=== PATIENT | male | born 1995 | race African-American/Black ===

== ENCOUNTER 2016-06-06 11:04 | Emergency (ER) | payer OTHER ==
[~2016-06-06] VITALS: Ht 170.2 cm; Wt 66.0 kg
[2016-06-06 11:05] VITALS: BP 133/80; PULSE 80; RESP 16; TEMP 98.8; O2SAT 99
[2016-06-06] MEDS ORDERED: IBUP800T23 PO (11:25)
--- NOTE | 2016-06-06 11:26 | PD ---
HPI Chief Complaint: Injury Time Seen by Provider: 11:22 Travel History International Travel<30 days: No Contact w/Intl Traveler<30days: No Traveled to known affect area: No History of Present Illness HPI 20-year-old male presents to emergency Department with complaint of left ankle pain and swelling since last night after stepping up a step and his foot slipped off the step, twisting his ankle. Denies paresthesias, loss of sensation, decreased range of motion, decreased strength to the affected extremity. Has been able to treat on the affected extremity. Denies fever, chills, nausea, vomiting. Pain and swelling is to the lateral aspect. Has iced and elevated the affected extremity. Has not taken any medications to alleviate his symptoms. No known allergies. No other medical complaints. No other modifying factors or associated signs and symptoms. [facility] Social History Tobacco Use: No Allergies-Medications (Allergen,Severity, Reaction): Coded Allergies: No Known Allergies (Unverified , 06/06/16) Reported Meds & Prescriptions Reported Meds & Active Scripts Active Ibuprofen 800 Mg Tab 800 Mg PO Q6HR PRN Review of Systems Except as stated in HPI: all other systems reviewed are Neg Physical Exam Narrative GENERAL: Well-nourished, well-developed male patient, in no acute distress SKIN: Warm and dry. HEAD: Atraumatic. Normocephalic. EYES: Pupils equal and round. No scleral icterus. No injection or drainage. ENT: Mucosa pink and moist. Airway patent. NECK: Trachea midline. CARDIOVASCULAR: Regular rate. RESPIRATORY: No accessory muscle use. GASTROINTESTINAL: Flat. MUSCULOSKELETAL: Left ankle with point tenderness and mild edema to the lateral malleolar zone; no obvious deformity. Left lower extremity is supple and non- tense with 2+ pedal pulses and sensory intact. No obvious deformities. No clubbing. No cyanosis. No edema. NEUROLOGICAL: Awake and alert. Oriented 3. No obvious cranial nerve deficits. Motor grossly within normal limits. Normal speech. PSYCHIATRIC: Appropriate mood and affect; insight and judgment normal. Data Data Last Documented VS Vital Signs Date Time Temp Pulse Resp B/P Pulse Ox O2 Delivery O2 Flow Rate FiO2 06/06/16 11:05 98.8 80 16 133/80 99 Room Air Orders Ankle, Complete ([id number]) (06/06/16 11:17) [facility] Medical Decision Making Medical Screen Exam Complete: Yes Emergency Medical Condition: Yes Medical Record Reviewed: Yes Differential Diagnosis Ankle sprain, ankle fracture, ankle dislocation Narrative Course 20-year-old male with left ankle injury. I offered the patient a nonnarcotic while in the ER and he declined. Left ankle x-ray ordered. 1219: Left ankle x-ray concludes Negative trauma study with mild soft tissue swelling over the lateral malleolus. Kt bandage and ankle stirrup splint provider for support. Crutches provided for support. Ibuprofen prescribed for home. Patient verbalizes understanding and agreement with treatment plan. Patient is medically cleared and stable for discharge. Discussed reasons to return to the emergency department. Instructed patient to follow up with primary care provider. Patient agrees with treatment plan. The patients vital signs are stable and the patient is stable for outpatient follow-up and treatment. Patient discharged home, stable and in no acute distress. Diagnosis Primary Impression: Left ankle sprain Qualified Code: S93.402A - Sprain of left ankle, unspecified ligament, initial encounter Referrals: Primary Care Physician Patient Instructions: Ankle Sprain (ED), Ankle Sprain Exercises (GEN), General Instructions Additional Instructions: Ibuprofen or Tylenol as directed and as stated for pain and inflammation Rest, ice, compress, and elevate extremity to decrease pain and inflammation Ankle Brace for support Avoid aggravating activity; increase activity as tolerated Follow-up with primary care provider Return to the emergency department immediately with worsening symptoms Med/Other Pt SpecificInfo: Prescription(s) given Scripts Ibuprofen 800 Mg [id number] Mg PO Q6HR PRN (PAIN) #30 TAB Ref 0 Prov:Janice Muniz 06/06/16 Disposition: 01 DISCHARGE HOME Condition: Stable Janice Muniz Jun 06, 2016 11:26
--- NOTE | 2016-06-06 11:54 | RADRPT ---
EXAM DATE/TIME: 06/06/2016 11:51 [facility] COMPARISON: No previous studies available for comparison. INDICATIONS : Left ankle pain, fall down stairs. MEDICAL HISTORY : None. SURGICAL HISTORY : None. ENCOUNTER: Initial ACUITY: 2 days PAIN SCORE: 8/10 LOCATION: Left medial ankle FINDINGS: Three view exam was performed of the left ankle. The bony structures are in normal alignment. No ev idence of acute fracture or malalignment. There is mild soft tissue swelling over the lateral malleol us.. The ankle mortise is intact. No radiopaque foreign bodies are seen. Bony mineralization is no rmal. CONCLUSION: Negative trauma study with mild soft tissue swelling over the lateral malleolus. Brooks Cardenas MD on June 06, 2016 at 11:52 Board Certified Radiologist. This report was verified electronically.
== END 2016-06-06 12:40 | disposition home or self-care (01) ==
LOC: NEPK 11:04
DX: S93.402A Sprain of unspecified ligament of left ankle, initial encounter (principal); X50.1XXA Overexertion from prolonged static or awkward postures, initial encounter; Y93.89 Activity, other specified; Y92.89 Other specified places as the place of occurrence of the external cause; Y99.8 Other external cause status
CPT/HCPCS: 73610; 99283; E0113; L1906